=== PATIENT | female | born 1985 | race Caucasian/White ===

== ENCOUNTER 2023-12-14 01:58 | Outpatient (CLI) | payer MEDICAID, SELFPAY ==
[2023-12-14 08:38] LABS: Abs Immature Grans 0.03 10^3/uL (0.0-0.06); Absolute Basophil Count 0.04 10^3/uL (0.0-0.2); Absolute Eosinophil Count 0.56 10^3/uL (0.0-0.7); Absolute Lymphocyte Count 1.75 10^3/uL (1.2-3.4); Absolute Monocyte Count 0.56 10^3/uL (0.1-0.8); Absolute Neutrophil Count 5.05 10^3/uL (1.2-6.7); Basophils % 0.5 %; HGB 13.5 g/dL (11.2-15.7); Immature Grans % 0.4 %; Lymphocytes % 21.9 %; MCH 29.8 pg (27.0-33.0); MCHC 32.9 % (32.0-36.0); MCV 91 fL (80-95); Neutrophils % 63.2 %; Platelet Count 200 10^3/uL (130-400); RBC 4.53 10^6/uL (3.93-5.22); RDW 13.2 % (11.7-14.6); RDW-SD 43.8 fL; WBC 7.99 10^3/uL (4.4-10.8)
[2023-12-14 08:40] LABS: Bilirubin Negative (Negative); Blood Moderate (Negative); Clarity Clear (Clear); Glucose Negative (Negative); Ketones Negative (Negative); Leukocyte Esterase Negative (Negative); Nitrite Negative (Negative); Specific Gravity >= 1.030 (1.005-1.025); Urobilinogen 0.2 mg/dL (Up to 0.2); pH 5.5 (5-8)
[2023-12-14 09:07] LABS: C & S Indicated? No; Epithelial Cells Moderate HPF (Negative); Mucus Moderate (Negative)
[2023-12-14 09:10] LABS: ALT 21 U/L (14-59); AST 14 U/L (15-37); Albumin 3.8 g/dL (3.4-5.0); Alkaline Phosphatase 80 U/L (46-116); Anion Gap 8.6 mmol/L (3-11); BUN 15 mg/dL (7-18); Bilirubin, Total 0.92 mg/dL (0.2-1.0); CO2 27.4 mmol/L (21.0-32.0); Calcium 9.3 mg/dL (8.5-10.1); Chloride 103 mmol/L (98-107); Estimated GFR 73.49 (mL/min/1.73m2); Glucose 78 mg/dL (74-106); Potassium 3.5 mmol/L (3.5-5.1); Sodium 139 mmol/L (136-145); Total Protein 7.5 g/dL (6.4-8.2)
[2023-12-14 20:40] LABS: CEA 2.1 ng/mL (See Note)
== END 2023-12-14 01:59 | disposition home or self-care (01) ==
LOC: LBO 01:58
PROVIDERS: PCP Internal Medicine; Visit Provider Internal Medicine Hematology & Oncology
DX: C18.9 Malignant neoplasm of colon, unspecified (principal); C78.7 Secondary malignant neoplasm of liver and intrahepatic bile duct
CPT/HCPCS: 36415; 80053; 81003; 81015; 82378; 85025

== ENCOUNTER 2023-12-27 01:08 | Outpatient (RCR) | payer MEDICAID, SELFPAY | END 2024-01-02 23:59 | disposition home or self-care (01) | LOC: INF 01:08 | PROVIDERS: PCP Internal Medicine; Visit Provider Internal Medicine Hematology & Oncology | DX: Z45.2 Encounter for adjustment and management of vascular access device (principal) | CPT/HCPCS: 96523 ==

== ENCOUNTER 2024-01-11 09:53 | Outpatient (CLI) | payer MEDICAID, SELFPAY ==
[2024-01-11 08:15] LABS: Abs Immature Grans 0.09 10^3/uL (0.0-0.06); Absolute Basophil Count 0.05 10^3/uL (0.0-0.2); Absolute Lymphocyte Count 1.47 10^3/uL (1.2-3.4); Absolute Neutrophil Count 4.32 10^3/uL (1.2-6.7); Basophils % 0.8 %; Eosinophils % 1.5 %; HCT 34.9 % (36.0-46.0); HGB 11.6 g/dL (11.2-15.7); Immature Grans % 1.4 %; Lymphocytes % 22.5 %; MCH 29.1 pg (27.0-33.0); MCHC 33.2 % (32.0-36.0); MCV 88 fL (80-95); MPV 10.7 fL (8.0-11.0); Monocytes % 7.7 %; Neutrophils % 66.1 %; Platelet Count 239 10^3/uL (130-400); RBC 3.99 10^6/uL (3.93-5.22); RDW-SD 42.8 fL; WBC 6.53 10^3/uL (4.4-10.8)
[2024-01-11 08:16] LABS: Bilirubin Small (Negative); Blood Moderate (Negative); Clarity Cloudy (Clear); Glucose Negative (Negative); Ketones Trace mg/dL (Negative); Leukocyte Esterase Negative (Negative); Nitrite Negative (Negative); Specific Gravity >= 1.030 (1.005-1.025); Urobilinogen 0.2 mg/dL (Up to 0.2); pH 5.5 (5-8)
[2024-01-11 08:34] LABS: ALT 33 U/L (14-59); AST 26 U/L (15-37); Albumin 3.5 g/dL (3.4-5.0); Alkaline Phosphatase 101 U/L (46-116); BUN 11 mg/dL (7-18); Bilirubin, Total 0.71 mg/dL (0.2-1.0); Calcium 9.2 mg/dL (8.5-10.1); Chloride 104 mmol/L (98-107); Estimated GFR 73.49 (mL/min/1.73m2); Glucose 97 mg/dL (74-106); Potassium 3.4 mmol/L (3.5-5.1); Sodium 140 mmol/L (136-145)
[2024-01-11 08:42] LABS: Bacteria Few HPF (Negative); C & S Indicated? No/Sq. Contamination; Casts Negative LPF (Negative); Crystals Negative HPF (Negative); Epithelial Cells Many HPF (Negative); Mucus Trace (Negative); WBC 0-2 HPF (0-5)
[2024-01-11 18:51] LABS: CEA 1.3 ng/mL (See Note)
== END 2024-01-11 09:54 | disposition home or self-care (01) ==
LOC: LBO 09:53
PROVIDERS: PCP Internal Medicine; Visit Provider Internal Medicine Hematology & Oncology
DX: C18.9 Malignant neoplasm of colon, unspecified (principal); C78.7 Secondary malignant neoplasm of liver and intrahepatic bile duct
CPT/HCPCS: 36415; 80053; 81003; 81015; 82378; 85025

== ENCOUNTER 2024-01-25 00:29 | Outpatient (RCR) | payer MEDICAID, SELFPAY ==
[2024-01-13] MEDS: Normal Saline Flush 10 ML SYR IVP (10:34)
[2024-01-25] MEDS: Normal Saline Flush 10 ML SYR IVP (07:47)
[2024-01-25 08:02] LABS: Abs Immature Grans 0.02 10^3/uL (0.0-0.06); Absolute Basophil Count 0.05 10^3/uL (0.0-0.2); Absolute Eosinophil Count 0.34 10^3/uL (0.0-0.7); Absolute Lymphocyte Count 1.43 10^3/uL (1.2-3.4); Absolute Monocyte Count 0.52 10^3/uL (0.1-0.8); Absolute Neutrophil Count 2.99 10^3/uL (1.2-6.7); Basophils % 0.9 %; Eosinophils % 6.4 %; HCT 35.4 % (36.0-46.0); HGB 11.5 g/dL (11.2-15.7); Immature Grans % 0.4 %; Lymphocytes % 26.7 %; MCH 29.3 pg (27.0-33.0); MCHC 32.5 % (32.0-36.0); MCV 90 fL (80-95); MPV 10.6 fL (8.0-11.0); Monocytes % 9.7 %; Neutrophils % 55.9 %; Platelet Count 166 10^3/uL (130-400); RBC 3.93 10^6/uL (3.93-5.22); RDW-SD 49.2 fL; WBC 5.35 10^3/uL (4.4-10.8)
[2024-01-25 08:48] LABS: ALT 26 U/L (14-59); AST 21 U/L (15-37); Albumin 3.5 g/dL (3.4-5.0); Alkaline Phosphatase 86 U/L (46-116); Anion Gap 9.8 mmol/L (3-11); BUN 18 mg/dL (7-18); CO2 24.2 mmol/L (21.0-32.0); CREATININE 0.8 mg/dL (0.55-1.02); Calcium 8.9 mg/dL (8.5-10.1); Chloride 106 mmol/L (98-107); Estimated GFR 96.06 (mL/min/1.73m2); Glucose 92 mg/dL (74-106); Potassium 3.8 mmol/L (3.5-5.1); Sodium 140 mmol/L (136-145); Total Protein 6.7 g/dL (6.4-8.2)
[2024-01-25 19:23] LABS: CEA 1.3 ng/mL (See Note)
== END 2024-02-02 23:59 | disposition home or self-care (01) ==
LOC: INF 00:29
PROVIDERS: PCP Internal Medicine; Visit Provider Internal Medicine Hematology & Oncology
DX: C18.9 Malignant neoplasm of colon, unspecified (principal); C78.7 Secondary malignant neoplasm of liver and intrahepatic bile duct; Z45.2 Encounter for adjustment and management of vascular access device
CPT/HCPCS: 36591; 80053; 96523; 82378; 85025

== ENCOUNTER 2024-02-29 09:30 | Outpatient (RCR) | payer MEDICAID, SELFPAY ==
[2024-02-15 10:27] LABS: Abs Immature Grans 0.01 10^3/uL (0.0-0.06); Absolute Basophil Count 0.03 10^3/uL (0.0-0.2); Absolute Eosinophil Count 0.16 10^3/uL (0.0-0.7); Absolute Lymphocyte Count 1.96 10^3/uL (1.2-3.4); Absolute Monocyte Count 0.64 10^3/uL (0.1-0.8); Basophils % 0.5 %; Eosinophils % 2.9 %; HCT 40.8 % (36.0-46.0); HGB 13.3 g/dL (11.2-15.7); Immature Grans % 0.2 %; MCH 29.4 pg (27.0-33.0); MCHC 32.6 % (32.0-36.0); MCV 90 fL (80-95); MPV 10.3 fL (8.0-11.0); Monocytes % 11.4 %; Platelet Count 241 10^3/uL (130-400); RBC 4.52 10^6/uL (3.93-5.22); RDW 15.1 % (11.7-14.6); RDW-SD 49.8 fL
[2024-02-15 10:28] LABS: Bilirubin Negative (Negative); Blood Moderate (Negative); Clarity Sl Cloudy (Clear); Glucose Negative (Negative); Ketones Negative (Negative); Leukocyte Esterase Negative (Negative); Nitrite Negative (Negative); Specific Gravity >= 1.030 (1.005-1.025); Urobilinogen 0.2 mg/dL (Up to 0.2); pH 5.5 (5-8)
[2024-02-15] MEDS: Normal Saline Flush 10 ML SYR IVP (10:29)
[2024-02-15 10:42] LABS: Epithelial Cells Moderate HPF (Negative)
[2024-02-15 10:43] LABS: Bacteria Few HPF (Negative); C & S Indicated? No; Crystals Negative HPF (Negative); Mucus Moderate (Negative)
[2024-02-15 10:46] LABS: ALT 33 U/L (14-59); AST 27 U/L (15-37); Albumin 3.9 g/dL (3.4-5.0); Alkaline Phosphatase 104 U/L (46-116); Anion Gap 9.2 mmol/L (3-11); BUN 12 mg/dL (7-18); Bilirubin, Total 0.98 mg/dL (0.2-1.0); CO2 24.8 mmol/L (21.0-32.0); CREATININE 0.9 mg/dL (0.55-1.02); Calcium 9.5 mg/dL (8.5-10.1); Chloride 105 mmol/L (98-107); Glucose 96 mg/dL (74-106); Sodium 139 mmol/L (136-145); Total Protein 7.5 g/dL (6.4-8.2)
[2024-02-15 18:12] LABS: CEA 2.2 ng/mL (See Note)
[2024-02-29 09:51] LABS: Abs Immature Grans 0.01 10^3/uL (0.0-0.06); Absolute Basophil Count 0.03 10^3/uL (0.0-0.2); Absolute Eosinophil Count 0.17 10^3/uL (0.0-0.7); Absolute Lymphocyte Count 1.31 10^3/uL (1.2-3.4); Absolute Monocyte Count 0.63 10^3/uL (0.1-0.8); Absolute Neutrophil Count 3.29 10^3/uL (1.2-6.7); Basophils % 0.6 %; Eosinophils % 3.1 %; HCT 38.2 % (36.0-46.0); HGB 12.7 g/dL (11.2-15.7); Immature Grans % 0.2 %; Lymphocytes % 24.1 %; MCH 29.9 pg (27.0-33.0); MCHC 33.2 % (32.0-36.0); MCV 90 fL (80-95); MPV 10.4 fL (8.0-11.0); Monocytes % 11.6 %; Neutrophils % 60.4 %; Platelet Count 160 10^3/uL (130-400); RBC 4.25 10^6/uL (3.93-5.22); RDW 15.2 % (11.7-14.6); RDW-SD 49.4 fL; WBC 5.44 10^3/uL (4.4-10.8)
[2024-02-29 09:57] LABS: Bilirubin Negative (Negative); Blood Moderate (Negative); Clarity Clear (Clear); Glucose Negative (Negative); Ketones Negative (Negative); Leukocyte Esterase Negative (Negative); Nitrite Negative (Negative); Specific Gravity >= 1.030 (1.005-1.025); Urobilinogen 0.2 mg/dL (Up to 0.2); pH 5.5 (5-8)
[2024-02-29 10:06] LABS: ALT 24 U/L (14-59); AST 19 U/L (15-37); Albumin 3.6 g/dL (3.4-5.0); Alkaline Phosphatase 94 U/L (46-116); Anion Gap 6.8 mmol/L (3-11); BUN 15 mg/dL (7-18); Bilirubin, Total 0.72 mg/dL (0.2-1.0); CO2 25.2 mmol/L (21.0-32.0); CREATININE 0.9 mg/dL (0.55-1.02); Calcium 9.2 mg/dL (8.5-10.1); Chloride 106 mmol/L (98-107); Glucose 87 mg/dL (74-106); Sodium 138 mmol/L (136-145); Total Protein 7.1 g/dL (6.4-8.2)
[2024-02-29 10:09] LABS: Epithelial Cells Moderate HPF (Negative); WBC 0-2 HPF (0-5)
[2024-02-29 10:10] LABS: Bacteria Few HPF (Negative); C & S Indicated? No; Casts 0-2 Hyaline LPF (Negative); Crystals Negative HPF (Negative); Mucus Moderate (Negative)
[2024-02-29] MEDS: Normal Saline Flush 10 ML SYR IVP (10:20)
[2024-02-29 18:08] LABS: CEA 1.8 ng/mL (See Note)
== END 2024-03-03 23:59 | disposition home or self-care (01) ==
LOC: INF 09:30
PROVIDERS: PCP Internal Medicine; Visit Provider Internal Medicine Hematology & Oncology
DX: C18.9 Malignant neoplasm of colon, unspecified (principal); C78.7 Secondary malignant neoplasm of liver and intrahepatic bile duct
CPT/HCPCS: 36591; 80053; 81003; 81015; 82378; 85025

== ENCOUNTER 2024-04-22 09:30 | Outpatient (RCR) | payer MEDICAID, SELFPAY ==
[2024-04-04] MEDS: Normal Saline Flush 10 ML SYR IVP (10:41)
[2024-04-04 11:01] LABS: Abs Immature Grans 0.02 10^3/uL (0.0-0.06); Absolute Basophil Count 0.03 10^3/uL (0.0-0.2); Absolute Eosinophil Count 0.21 10^3/uL (0.0-0.7); Absolute Lymphocyte Count 1.62 10^3/uL (1.2-3.4); Absolute Monocyte Count 0.57 10^3/uL (0.1-0.8); Absolute Neutrophil Count 6.67 10^3/uL (1.2-6.7); Basophils % 0.3 %; Eosinophils % 2.3 %; HGB 13.1 g/dL (11.2-15.7); Immature Grans % 0.2 %; Lymphocytes % 17.8 %; MCH 30.1 pg (27.0-33.0); MCHC 32.8 % (32.0-36.0); MCV 92 fL (80-95); MPV 11.3 fL (8.0-11.0); Monocytes % 6.3 %; Neutrophils % 73.1 %; Platelet Count 157 10^3/uL (130-400); RBC 4.35 10^6/uL (3.93-5.22); RDW 15.1 % (11.7-14.6); RDW-SD 51.1 fL; WBC 9.12 10^3/uL (4.4-10.8)
[2024-04-04 11:02] LABS: Bilirubin Negative (Negative); Blood Large (Negative); Clarity Clear (Clear); Glucose Negative (Negative); Ketones Negative (Negative); Leukocyte Esterase Negative (Negative); Nitrite Negative (Negative); Specific Gravity >= 1.030 (1.005-1.025); Urobilinogen 0.2 mg/dL (Up to 0.2)
[2024-04-04 11:07] LABS: ALT 45 U/L (14-59); AST 26 U/L (15-37); Albumin 3.6 g/dL (3.4-5.0); Alkaline Phosphatase 109 U/L (46-116); BUN 14 mg/dL (7-18); Bilirubin, Total 0.91 mg/dL (0.2-1.0); CREATININE 0.9 mg/dL (0.55-1.02); Chloride 108 mmol/L (98-107); Glucose 82 mg/dL (74-106); Potassium 3.5 mmol/L (3.5-5.1); Sodium 144 mmol/L (136-145); Total Protein 7.3 g/dL (6.4-8.2)
[2024-04-04 11:22] LABS: Epithelial Cells Many HPF (Negative); RBC 20-50 HPF (0-2)
[2024-04-04 11:23] LABS: Bacteria Many HPF (Negative); C & S Indicated? No/Sq. Contamination; Casts Negative LPF (Negative); Crystals Negative HPF (Negative); Mucus Moderate (Negative)
[2024-04-22 09:55] LABS: Abs Immature Grans 0.01 10^3/uL (0.0-0.06); Absolute Basophil Count 0.02 10^3/uL (0.0-0.2); Absolute Eosinophil Count 0.08 10^3/uL (0.0-0.7); Absolute Lymphocyte Count 1.21 10^3/uL (1.2-3.4); Absolute Monocyte Count 0.41 10^3/uL (0.1-0.8); Absolute Neutrophil Count 1.17 10^3/uL (1.2-6.7); Basophils % 0.7 %; Eosinophils % 2.8 %; HCT 41.5 % (36.0-46.0); HGB 13.3 g/dL (11.2-15.7); Immature Grans % 0.3 %; Lymphocytes % 41.7 %; MCH 30.1 pg (27.0-33.0); MCV 94 fL (80-95); MPV 10.6 fL (8.0-11.0); Monocytes % 14.1 %; Neutrophils % 40.4 %; Platelet Count 208 10^3/uL (130-400); RBC 4.42 10^6/uL (3.93-5.22); RDW 14.1 % (11.7-14.6); RDW-SD 48.5 fL
[2024-04-22 10:11] LABS: ALT 25 U/L (14-59); AST 21 U/L (15-37); Albumin 3.6 g/dL (3.4-5.0); Alkaline Phosphatase 99 U/L (46-116); Anion Gap 6.9 mmol/L (3-11); BUN 15 mg/dL (7-18); Bilirubin, Total 1.07 mg/dL (0.2-1.0); CO2 27.1 mmol/L (21.0-32.0); Calcium 8.9 mg/dL (8.5-10.1); Chloride 108 mmol/L (98-107); Estimated GFR 73.04 (mL/min/1.73m2); Glucose 89 mg/dL (74-106); Potassium 3.6 mmol/L (3.5-5.1); Sodium 142 mmol/L (136-145); Total Protein 7.1 g/dL (6.4-8.2)
[2024-04-22] MEDS: Normal Saline Flush 10 ML SYR IVP (12:00)
[2024-04-22 12:57] LABS: Bilirubin Negative (Negative); Blood Moderate (Negative); Clarity Turbid (Clear); Glucose Negative (Negative); Ketones Negative (Negative); Leukocyte Esterase Negative (Negative); Nitrite Negative (Negative); Specific Gravity >= 1.030 (1.005-1.025); Urobilinogen 0.2 mg/dL (Up to 0.2); pH 5.5 (5-8)
[2024-04-22 13:51] LABS: Bacteria Many HPF (Negative); Crystals Negative HPF (Negative); Epithelial Cells Many HPF (Negative); Mucus Heavy (Negative); Other Cells Negative (Negative)
[2024-04-22 13:52] LABS: C & S Indicated? No/Sq. Contamination; Casts Negative LPF (Negative)
== END 2024-05-03 23:59 | disposition home or self-care (01) ==
LOC: INF 09:30
PROVIDERS: PCP Internal Medicine; Visit Provider Internal Medicine Hematology & Oncology
DX: C18.9 Malignant neoplasm of colon, unspecified (principal); C78.7 Secondary malignant neoplasm of liver and intrahepatic bile duct; Z45.2 Encounter for adjustment and management of vascular access device
CPT/HCPCS: 36415; 36591; 80053; 81003; 81015; 82378; 85025

== ENCOUNTER 2024-06-03 01:56 | Outpatient (RCR) | payer MEDICAID, SELFPAY ==
[2024-05-13] MEDS: Normal Saline Flush 10 ML SYR IVP (10:50)
[2024-05-13 10:59] LABS: Abs Immature Grans 0.03 10^3/uL (0.0-0.06); Absolute Basophil Count 0.04 10^3/uL (0.0-0.2); Absolute Eosinophil Count 0.09 10^3/uL (0.0-0.7); Absolute Lymphocyte Count 1.54 10^3/uL (1.2-3.4); Absolute Monocyte Count 0.55 10^3/uL (0.1-0.8); Absolute Neutrophil Count 3.81 10^3/uL (1.2-6.7); Basophils % 0.7 %; Eosinophils % 1.5 %; HGB 13.6 g/dL (11.2-15.7); Immature Grans % 0.5 %; Lymphocytes % 25.4 %; MCH 30.3 pg (27.0-33.0); MCHC 32.4 % (32.0-36.0); MCV 94 fL (80-95); Monocytes % 9.1 %; Neutrophils % 62.8 %; Platelet Count 181 10^3/uL (130-400); RBC 4.49 10^6/uL (3.93-5.22); RDW 14.1 % (11.7-14.6); RDW-SD 48.8 fL; WBC 6.06 10^3/uL (4.4-10.8)
[2024-05-13 11:00] LABS: Bilirubin Negative (Negative); Blood Moderate (Negative); Clarity Clear (Clear); Glucose Negative (Negative); Ketones Negative (Negative); Leukocyte Esterase Negative (Negative); Nitrite Negative (Negative); Specific Gravity 1.025 (1.005-1.025); Urobilinogen 0.2 mg/dL (Up to 0.2); pH 5.5 (5-8)
[2024-05-13 11:08] LABS: Bacteria Negative HPF (Negative); C & S Indicated? No; Casts Negative LPF (Negative); Crystals Negative HPF (Negative); Epithelial Cells Rare HPF (Negative); Mucus Trace (Negative); WBC 0-2 HPF (0-5)
[2024-05-13 11:13] LABS: ALT 28 U/L (14-59); AST 21 U/L (15-37); Albumin 3.6 g/dL (3.4-5.0); Alkaline Phosphatase 99 U/L (46-116); Anion Gap 7.6 mmol/L (3-11); BUN 16 mg/dL (7-18); Bilirubin, Total 0.91 mg/dL (0.2-1.0); CO2 26.4 mmol/L (21.0-32.0); CREATININE 0.9 mg/dL (0.55-1.02); Calcium 8.8 mg/dL (8.5-10.1); Chloride 107 mmol/L (98-107); Estimated GFR 82.88 (mL/min/1.73m2); Glucose 86 mg/dL (74-106); Potassium 4.2 mmol/L (3.5-5.1); Sodium 141 mmol/L (136-145); Total Protein 7.2 g/dL (6.4-8.2)
[2024-05-13 18:15] LABS: CEA 1.8 ng/mL (See Note)
[2024-06-03] MEDS: Normal Saline Flush 10 ML SYR IVP (09:59)
[2024-06-03 10:06] LABS: Bilirubin Negative (Negative); Blood Moderate (Negative); Clarity Clear (Clear); Glucose Negative (Negative); Ketones Negative (Negative); Leukocyte Esterase Negative (Negative); Nitrite Negative (Negative); Specific Gravity 1.025 (1.005-1.025); Urobilinogen 0.2 mg/dL (Up to 0.2)
[2024-06-03 10:09] LABS: Abs Immature Grans 0.02 10^3/uL (0.0-0.06); Absolute Basophil Count 0.02 10^3/uL (0.0-0.2); Absolute Eosinophil Count 0.14 10^3/uL (0.0-0.7); Absolute Lymphocyte Count 1.73 10^3/uL (1.2-3.4); Absolute Monocyte Count 0.52 10^3/uL (0.1-0.8); Basophils % 0.5 %; Eosinophils % 3.6 %; HCT 40.2 % (36.0-46.0); HGB 13.6 g/dL (11.2-15.7); Immature Grans % 0.5 %; MCH 30.8 pg (27.0-33.0); MCHC 33.8 % (32.0-36.0); MCV 91 fL (80-95); MPV 10.9 fL (8.0-11.0); Monocytes % 13.2 %; Neutrophils % 38.2 %; Platelet Count 205 10^3/uL (130-400); RBC 4.41 10^6/uL (3.93-5.22); RDW-SD 46.9 fL; WBC 3.93 10^3/uL (4.4-10.8)
[2024-06-03 10:12] LABS: Bacteria Few HPF (Negative); C & S Indicated? No; Casts Negative LPF (Negative); Crystals Negative HPF (Negative); Epithelial Cells Many HPF (Negative); Mucus Negative (Negative); Other Cells Negative (Negative); WBC 0-2 HPF (0-5)
[2024-06-03 10:16] LABS: ALT 35 U/L (14-59); AST 32 U/L (15-37); Albumin 3.5 g/dL (3.4-5.0); Alkaline Phosphatase 99 U/L (46-116); BUN 12 mg/dL (7-18); Bilirubin, Total 1.08 mg/dL (0.2-1.0); Calcium 9.6 mg/dL (8.5-10.1); Chloride 106 mmol/L (98-107); Estimated GFR 73.04 (mL/min/1.73m2); Glucose 89 mg/dL (74-106); Sodium 141 mmol/L (136-145); Total Protein 7.1 g/dL (6.4-8.2)
[2024-06-03 20:10] LABS: CEA 1.9 ng/mL (See Note)
== END 2024-06-03 23:59 | disposition home or self-care (01) ==
LOC: INF 01:56
PROVIDERS: PCP Internal Medicine; Visit Provider Internal Medicine Hematology & Oncology
DX: C18.9 Malignant neoplasm of colon, unspecified (principal); C78.7 Secondary malignant neoplasm of liver and intrahepatic bile duct; Z45.2 Encounter for adjustment and management of vascular access device
CPT/HCPCS: 36591; 80053; 81003; 81015; 82378; 85025

== ENCOUNTER 2024-06-24 02:02 | Outpatient (RCR) | payer MEDICAID, SELFPAY ==
[2024-06-10 08:23] LABS: Abs Immature Grans 0.03 10^3/uL (0.0-0.06); Absolute Basophil Count 0.03 10^3/uL (0.0-0.2); Absolute Eosinophil Count 0.19 10^3/uL (0.0-0.7); Absolute Lymphocyte Count 1.82 10^3/uL (1.2-3.4); Absolute Monocyte Count 0.59 10^3/uL (0.1-0.8); Absolute Neutrophil Count 3.13 10^3/uL (1.2-6.7); Basophils % 0.5 %; Eosinophils % 3.3 %; HCT 41.7 % (36.0-46.0); HGB 13.8 g/dL (11.2-15.7); Immature Grans % 0.5 %; Lymphocytes % 31.4 %; MCH 31.2 pg (27.0-33.0); MCHC 33.1 % (32.0-36.0); MCV 94 fL (80-95); MPV 10.9 fL (8.0-11.0); Monocytes % 10.2 %; Neutrophils % 54.1 %; Platelet Count 174 10^3/uL (130-400); RBC 4.43 10^6/uL (3.93-5.22); RDW 13.8 % (11.7-14.6); RDW-SD 47.7 fL; WBC 5.79 10^3/uL (4.4-10.8)
[2024-06-10 08:27] LABS: Bilirubin Negative (Negative); Blood Moderate (Negative); Clarity Clear (Clear); Glucose Negative (Negative); Ketones Negative (Negative); Leukocyte Esterase Negative (Negative); Nitrite Negative (Negative); Specific Gravity >= 1.030 (1.005-1.025); Urobilinogen 0.2 mg/dL (Up to 0.2); pH 5.5 (5-8)
[2024-06-10 08:41] LABS: ALT 28 U/L (14-59); AST 22 U/L (15-37); Albumin 3.6 g/dL (3.4-5.0); Alkaline Phosphatase 95 U/L (46-116); Anion Gap 9.3 mmol/L (3-11); BUN 14 mg/dL (7-18); Bilirubin, Total 1.69 mg/dL (0.2-1.0); CO2 25.7 mmol/L (21.0-32.0); Chloride 107 mmol/L (98-107); Estimated GFR 73.04 (mL/min/1.73m2); Glucose 97 mg/dL (74-106); Sodium 142 mmol/L (136-145)
[2024-06-10 08:42] LABS: Bacteria Negative HPF (Negative); C & S Indicated? No; Casts Negative LPF (Negative); Crystals Many Amorphous HPF (Negative); Epithelial Cells Few HPF (Negative); Mucus Negative (Negative); WBC 0-2 HPF (0-5)
[2024-06-10] MEDS: Normal Saline Flush 10 ML SYR IVP (08:49)
[2024-06-10 22:55] LABS: CEA 1.8 ng/mL (See Note)
== END 2024-07-04 23:59 | disposition home or self-care (01) ==
LOC: INF 02:02
PROVIDERS: PCP Internal Medicine; Visit Provider Internal Medicine Hematology & Oncology
DX: C18.9 Malignant neoplasm of colon, unspecified (principal); C78.7 Secondary malignant neoplasm of liver and intrahepatic bile duct
CPT/HCPCS: 36591; 80053; 81003; 81015; 82378; 85025